=== PATIENT | male | born 1965 | race Caucasian/White ===

== ENCOUNTER 2019-05-27 17:48 | Inpatient (IN) | payer SELFPAY ==
[~2019-05-27] VITALS: Ht 170.2 cm; Wt 99.0 kg
[2019-05-27] MEDS ORDERED: AZITHROMYCIN 500 MG in DEXT 5% WATER 250 ML IV ONE (19:00)
[2019-05-27] MEDS ORDERED: CEFTRIAXONE 1 G PREMIX 50 ML IV ONE (19:00)
[2019-05-27] MEDS ORDERED: SODIUM CHLORIDE 0.9% 1000ML BAG (SEPSIS BOLUS) IV ONE (19:00)
[2019-05-27] MEDS ORDERED: ACETAMINOPHEN 500MG TABLET PO ONE (19:00)
[2019-05-27 19:50] LABS: INR 1.3; MEAN CORPUSCULAR HEMOGLOBIN 28.7 pg (28.0-32.0); MEAN CORPUSCULAR VOLUME 84.6 fL (80.0-94.0); MEAN PLATELET VOLUME 10.9 fl (7.4-10.4); PROTHROMBIN TIME 14.3 sec (9.6-11.0); RED BLOOD CELL COUNT 2.15 mill/uL (4.7-6.1)
[2019-05-27 19:58] LABS: PLATELET 13 x1000/uL (130-400)
[2019-05-27 19:59] LABS: HEMATOCRIT. 18.2 % (42.0-52.0); HEMOGLOBIN. 6.2 g/dL (14.0-18.0)
[2019-05-27 20:00] LABS: CHLORIDE 99 mEq/L (98-107)
[2019-05-27 22:22] LABS: CLARITY URINE CLOUDY (CLEAR); COLOR URINE DARK YELLOW (YELLOW); KETONES URINE TRACE (NEGATIVE); LEUKOCYTE ESTERASE URINE NEGATIVE (NEGATIVE); NITRITE URINE NEGATIVE (NEGATIVE); OCCULT BLOOD URINE NEGATIVE (NEGATIVE); PROTEIN URINE 1+ (NEGATIVE); SPECIFIC GRAVITY URINE 1.019 (1.005-1.030)
[2019-05-28 05:05] LABS: PLATELET ESTIMATE DECREASED
[2019-05-28] MEDS ORDERED: AZITHROMYCIN 500 MG in DEXT 5% WATER 250 ML IV SCH ×2 (06:00→21:00)
[2019-05-28] MEDS ORDERED: CEFTRIAXONE 1 G PREMIX 50 ML IV SCH ×2 (06:00→20:00)
[2019-05-28] MEDS ORDERED: DOCUSATE SODIUM 100MG CAPSULE PO PRN (22:15)
[2019-05-28] MEDS ORDERED: CLONIDINE 0.1MG TABLET PO PRN (22:15)
[2019-05-28] MEDS ORDERED: ONDANSETRON HCL 4MG/2ML INJ IV PRN (22:15)
[2019-05-28] MEDS ORDERED: MAGNESIUM/ALUMINUM HYDROXIDE/SIMETHICONE 30ML UDC PO PRN (22:15)
[2019-05-28] MEDS ORDERED: SODIUM CHLORIDE 0.9% 1,000 ML IV ONE (22:30)
[2019-05-28 22:52] LABS: MEAN CORPUSCULAR HEMOGLOBIN 29.3 pg (28.0-32.0); MEAN CORPUSCULAR VOLUME 85.6 fL (80.0-94.0); RED BLOOD CELL COUNT 2.35 mill/uL (4.7-6.1); RED CELL DISTRIBUTION WIDTH 20.6 % (11.6-14.6)
[2019-05-28 22:57] LABS: CHLORIDE 106 mEq/L (98-107)
[2019-05-28 23:04] LABS: ETHANOL BLOOD < 10 mg/dL; HEMATOCRIT 20.1 % (42.0-52.0); HEMOGLOBIN 6.9 g/dL (14.0-18.0); PLATELET 12 x1000/uL (130-400)
[2019-05-28 23:11] LABS: TOTAL IRON BINDING CAPACITY 160 ug/dL (250-450)
[2019-05-28 23:31] LABS: HEPATITIS B SURFACE ANTIGEN NEGATIVE
[2019-05-29 00:01] LABS: HEPATITIS A AB IGM NEGATIVE (NEGATIVE)
[2019-05-29] MEDS: IPRATROPIUM/ALBUTEROL 0.5-3(2.5)MG/3ML NEB NEB PRN (02:36)
[2019-05-29 02:57] LABS: VITAMIN B12 SERUM 1271 pg/mL (211-911)
[2019-05-29 05:29] LABS: MEAN CORPUSCULAR HEMOGLOBIN 29.3 pg (28.0-32.0); MEAN CORPUSCULAR VOLUME 87.6 fL (80.0-94.0); MEAN PLATELET VOLUME 8.5 fl (7.4-10.4); RED BLOOD CELL COUNT 2.32 mill/uL (4.7-6.1); RED CELL DISTRIBUTION WIDTH 19.5 % (11.6-14.6)
[2019-05-29 05:32] LABS: CHLORIDE 108 mEq/L (98-107)
[2019-05-29 05:38] LABS: HEMATOCRIT. 20.3 % (42.0-52.0); HEMOGLOBIN. 6.8 g/dL (14.0-18.0); PLATELET 19 x1000/uL (130-400)
[2019-05-29 05:39] LABS: LDL CHOLESTEROL 35 mg/dL (5-100)
[2019-05-29 05:40] LABS: HDL CHOLESTEROL 9 mg/dL (40-59)
[2019-05-29 05:42] LABS: CREATINE KINASE 150 IU/L (39-308)
[2019-05-29 05:43] LABS: CREATINE KINASE MB FRACTION < 1.0 ng/mL (0.5-3.6)
[2019-05-29 07:13] LABS: NUCLEATED RED BLOOD CELLS 1 /100 WBC
[2019-05-29 07:14] LABS: PLATELET ESTIMATE DECREASED
[2019-05-29 12:30] VITALS: BP 111/62
[2019-05-29 12:36] VITALS: BP 111/62
[2019-05-29] MEDS ORDERED: CEFTRIAXONE 1 G PREMIX 50 ML IV SCH (13:00)
[2019-05-29] MEDS: VANCOMYCIN 2,000 MG in DEXT 5% WATER 500 ML IV SCH ×2 (14:00→15:32)
[2019-05-29] MEDS ORDERED: AZITHROMYCIN 500 MG in DEXT 5% WATER 250 ML IV SCH (14:00)
[2019-05-29 16:02] LABS: CREATINE KINASE 155 IU/L (39-308)
[2019-05-29 16:03] LABS: CREATINE KINASE MB FRACTION 1.4 ng/mL (0.5-3.6)
[2019-05-29 20:00] VITALS: BP 115/65
[2019-05-29] MEDS ORDERED: HYDROCODONE/ACETAMINOPHEN 5/325MG TABLET PO ONE (20:00)
[2019-05-29] MEDS: AZITHROMYCIN 500 MG in DEXT 5% WATER 250 ML IV SCH (20:50)
[2019-05-30] VITALS: BP 118/64
[2019-05-30] MEDS: VANCOMYCIN 1,000 MG in DEXT 5% WATER 250 ML IV SCH ×4 (00:38→21:28)
[2019-05-30] MEDS ORDERED: DEXTROSE 50% WATER 50ML SYRINGE IV PRN (01:15)
[2019-05-30] MEDS: CEFTRIAXONE 1 G PREMIX 50 ML IV SCH ×2 (01:46→20:45)
[2019-05-30] MEDS: ACETAMINOPHEN 325MG TABLET PO PRN ×2 (03:34→21:28)
[2019-05-30 04:00] VITALS: BP 101/56
[2019-05-30] MEDS: BLOOD SUGAR DIAGNOSTIC STRIP TEST SCH ×4 (06:05→20:45)
[2019-05-30] MEDS: INSULIN LISPRO 100 UNITS/ML SUBCUT SCH ×4 (06:17→21:00)
[2019-05-30 08:00] VITALS: BP 95/60
[2019-05-30 08:08] LABS: HIV SCREEN 4G Non Reactive (Non Reactive)
[2019-05-30 08:59] LABS: CHLORIDE 109 mEq/L (98-107)
[2019-05-30 09:17] LABS: HEMATOCRIT 24.9 % (42.0-52.0); HEMOGLOBIN 8.6 g/dL (14.0-18.0); MEAN CORPUSCULAR VOLUME 87.2 fL (80.0-94.0); RED BLOOD CELL COUNT 2.85 mill/uL (4.7-6.1); RED CELL DISTRIBUTION WIDTH 19.3 % (11.6-14.6)
[2019-05-30 09:20] LABS: PLATELET 13 x1000/uL (130-400)
[2019-05-30 12:00] VITALS: BP 112/75
[2019-05-30] MEDS ORDERED: POTASSIUM CHLORIDE 20MEQ TABLET SR PO SCH (12:15)
[2019-05-30 15:17] VITALS: BP 108/67
[2019-05-30 20:00] VITALS: BP 107/69
[2019-05-30] MEDS: AZITHROMYCIN 500 MG in DEXT 5% WATER 250 ML IV SCH (20:45)
[2019-05-30] MEDS: PANTOPRAZOLE SODIUM 40 MG/VIAL IV SCH (20:45)
[2019-05-30] MEDS: IPRATROPIUM/ALBUTEROL 0.5-3(2.5)MG/3ML NEB HHN SCH (22:20)
[2019-05-31] VITALS (7 sets, daily range): BP systolic 96–124; BP diastolic 52–67
[2019-05-31] MEDS: IPRATROPIUM/ALBUTEROL 0.5-3(2.5)MG/3ML NEB HHN SCH ×4 (01:00→20:35)
[2019-05-31] MEDS: VANCOMYCIN 1,000 MG in DEXT 5% WATER 250 ML IV SCH ×2 (05:41→17:47)
[2019-05-31 05:49] LABS: HEMATOCRIT. 23.1 % (42.0-52.0); HEMOGLOBIN. 7.9 g/dL (14.0-18.0); MEAN CORPUSCULAR HEMOGLOBIN 29.8 pg (28.0-32.0); MEAN CORPUSCULAR VOLUME 87.7 fL (80.0-94.0); MEAN PLATELET VOLUME 10.2 fl (7.4-10.4); RED BLOOD CELL COUNT 2.64 mill/uL (4.7-6.1); RED CELL DISTRIBUTION WIDTH 19.4 % (11.6-14.6)
[2019-05-31] MEDS: BLOOD SUGAR DIAGNOSTIC STRIP TEST SCH ×4 (05:58→21:32)
[2019-05-31 05:59] LABS: INR 1.1; PARTIAL THROMBOPLASTIN TIME 34.8 sec (23.4-31.0); PROTHROMBIN TIME 11.9 sec (9.6-11.0)
[2019-05-31 06:01] LABS: CHLORIDE 109 mEq/L (98-107)
[2019-05-31 06:22] LABS: PLATELET 11 x1000/uL (130-400)
[2019-05-31] MEDS: INSULIN LISPRO 100 UNITS/ML SUBCUT SCH ×4 (06:28→21:00)
[2019-05-31] MEDS ORDERED: MIDAZOLAM HCL 5 MG/5 ML VIAL ONE (10:47)
[2019-05-31] MEDS ORDERED: FENTANYL CITRATE/PF 50MCG/ML 2ML VIAL ONE (10:48)
[2019-05-31] MEDS ORDERED: MIDAZOLAM HCL 5 MG/5 ML VIAL IV PRN (10:52)
[2019-05-31] MEDS ORDERED: FENTANYL CITRATE/PF 50MCG/ML 2ML VIAL IV PRN (10:53)
[2019-05-31] MEDS ORDERED: KCL 20MEQ/100ML PREMIX 100 ML IV SCH (11:00)
[2019-05-31] MEDS: PANTOPRAZOLE SODIUM 40 MG/VIAL IV SCH ×2 (12:21→21:31)
[2019-05-31 18:25] LABS: PLATELET ESTIMATE MARKEDLY DECREASED
[2019-05-31] MEDS: CEFTRIAXONE 1 G PREMIX 50 ML IV SCH (21:34)
[2019-05-31] MEDS: AZITHROMYCIN 500 MG in DEXT 5% WATER 250 ML IV SCH (23:14)
[2019-06-01] VITALS (10 sets, daily range): BP systolic 96–110; BP diastolic 50–72
[2019-06-01] MEDS: IPRATROPIUM/ALBUTEROL 0.5-3(2.5)MG/3ML NEB HHN SCH ×3 (01:55→14:45)
[2019-06-01] MEDS: VANCOMYCIN 1,000 MG in DEXT 5% WATER 250 ML IV SCH (05:56)
[2019-06-01 06:30] LABS: CHLORIDE 110 mEq/L (98-107)
[2019-06-01] MEDS: INSULIN LISPRO 100 UNITS/ML SUBCUT SCH ×4 (07:01→20:42)
[2019-06-01] MEDS: BLOOD SUGAR DIAGNOSTIC STRIP TEST SCH ×4 (07:01→20:42)
[2019-06-01 08:37] LABS: HEMATOCRIT. 21.8 % (42.0-52.0); HEMOGLOBIN. 7.5 g/dL (14.0-18.0); MEAN CORPUSCULAR HEMOGLOBIN 30.3 pg (28.0-32.0); MEAN CORPUSCULAR VOLUME 87.9 fL (80.0-94.0); MEAN PLATELET VOLUME 11.9 fl (7.4-10.4); RED BLOOD CELL COUNT 2.48 mill/uL (4.7-6.1); RED CELL DISTRIBUTION WIDTH 19.4 % (11.6-14.6)
[2019-06-01] MEDS: PANTOPRAZOLE SODIUM 40 MG/VIAL IV SCH ×2 (08:49→20:50)
[2019-06-01 09:07] LABS: PLATELET 9 x1000/uL (130-400)
[2019-06-01 10:05] LABS: PLATELET ESTIMATE MARKEDLY DECREASED
[2019-06-01] MEDS ORDERED: POTASSIUM CHLORIDE 20MEQ TABLET SR PO ONE (10:45)
[2019-06-01] MEDS: CEFEPIME 1,000 MG in DEXTROSE 5% WATER 50 ML IV SCH ×2 (13:07→23:02)
[2019-06-01] MEDS: ACETYLCYSTEINE 100MG/ML 10% VIAL 4ML INH SCH (21:41)
[2019-06-01] MEDS: IPRATROPIUM/ALBUTEROL 0.5-3(2.5)MG/3ML NEB NEB PRN (21:42)
[2019-06-01 23:14] LABS: HEMATOCRIT 21.6 % (42.0-52.0); HEMOGLOBIN 7.4 g/dL (14.0-18.0)
[2019-06-02] VITALS (10 sets, daily range): BP systolic 91–107; BP diastolic 45–73
[2019-06-02] MEDS: BLOOD SUGAR DIAGNOSTIC STRIP TEST SCH ×4 (06:25→20:34)
[2019-06-02] MEDS: INSULIN LISPRO 100 UNITS/ML SUBCUT SCH ×4 (06:25→20:34)
[2019-06-02 06:54] LABS: HEMATOCRIT. 22.4 % (42.0-52.0); HEMOGLOBIN. 7.7 g/dL (14.0-18.0); MEAN CORPUSCULAR HEMOGLOBIN 29.8 pg (28.0-32.0); MEAN CORPUSCULAR VOLUME 87.1 fL (80.0-94.0); MEAN PLATELET VOLUME 8.7 fl (7.4-10.4); RED BLOOD CELL COUNT 2.58 mill/uL (4.7-6.1); RED CELL DISTRIBUTION WIDTH 19.5 % (11.6-14.6)
[2019-06-02 07:06] LABS: PLATELET 23 x1000/uL (130-400)
[2019-06-02 07:10] LABS: CHLORIDE 109 mEq/L (98-107)
[2019-06-02 07:26] LABS: FOLIC ACID (FOLATE) SERUM 7.8 ng/mL (>5.38)
[2019-06-02] MEDS: CEFEPIME 1,000 MG in DEXTROSE 5% WATER 50 ML IV SCH ×2 (08:31→20:34)
[2019-06-02] MEDS: PANTOPRAZOLE SODIUM 40 MG/VIAL IV SCH ×2 (08:31→20:34)
[2019-06-02] MEDS: ACETYLCYSTEINE 100MG/ML 10% VIAL 4ML INH SCH ×3 (09:06→20:34)
[2019-06-02] MEDS: IPRATROPIUM/ALBUTEROL 0.5-3(2.5)MG/3ML NEB HHN SCH ×4 (09:09→20:34)
[2019-06-02 10:31] LABS: PLATELET ESTIMATE MARKEDLY DECREASED
[2019-06-03] VITALS: BP 108/65
[2019-06-03] MEDS: IPRATROPIUM/ALBUTEROL 0.5-3(2.5)MG/3ML NEB HHN SCH ×4 (00:46→13:30)
[2019-06-03 04:00] VITALS: BP 101/47
[2019-06-03] MEDS: INSULIN LISPRO 100 UNITS/ML SUBCUT SCH ×2 (05:43→12:06)
[2019-06-03] MEDS: BLOOD SUGAR DIAGNOSTIC STRIP TEST SCH ×2 (05:43→12:05)
[2019-06-03 07:44] LABS: CHLORIDE 109 mEq/L (98-107)
[2019-06-03 07:51] LABS: HEMATOCRIT. 21.6 % (42.0-52.0); HEMOGLOBIN. 7.4 g/dL (14.0-18.0); MEAN CORPUSCULAR VOLUME 87.9 fL (80.0-94.0); MEAN PLATELET VOLUME 8.5 fl (7.4-10.4); RED BLOOD CELL COUNT 2.45 mill/uL (4.7-6.1); RED CELL DISTRIBUTION WIDTH 19.1 % (11.6-14.6)
[2019-06-03 08:00] VITALS: BP_SYST 101; BP_SYST 116; BP_DIAS 55; BP_DIAS 66
[2019-06-03 08:21] LABS: PLATELET 39 x1000/uL (130-400)
[2019-06-03] MEDS: PANTOPRAZOLE SODIUM 40 MG/VIAL IV SCH (09:04)
[2019-06-03] MEDS: CEFEPIME 1,000 MG in DEXTROSE 5% WATER 50 ML IV SCH (09:04)
[2019-06-03] MEDS: ACETYLCYSTEINE 100MG/ML 10% VIAL 4ML INH SCH (09:21)
[2019-06-03 12:00] VITALS: BP 121/72
[2019-06-03 13:30] VITALS: BP 121/72
[2019-06-04 08:43] LABS: PLATELET ESTIMATE MARKEDLY DECREASED
[2019-06-04 09:06] LABS: IMMUNOGLOBULIN A 549 mg/dL (90-386); IMMUNOGLOBULIN G 2684 mg/dL (603-1613); IMMUNOGLOBULIN M 164 mg/dL (20-172)
== END 2019-06-03 14:10 | disposition home or self-care (01) | DRG 720 ==
LOC: ER 17:48 → EDBEDREQ 05-28 00:17 → EDBEDREQTM 05-28 00:17 → EDBEDREQDT 05-28 00:17 → ENRESERV 05-28 20:17 → CANRESERV 05-28 20:17 → 7EST 05-29 00:07 → CANRESERV 05-29 07:56 → ENRESERV 05-29 07:56 → EDBEDREQTM 05-29 09:15 → EDBEDREQSVC 05-29 09:15 → EDBEDREQDT 05-29 09:15 → ENRESERV 05-29 10:21 → 5WST 05-29 22:40
PROVIDERS: ADMIT Internal Medicine; ATTEND Internal Medicine
PROC: 30233N1 Transfusion of Nonautologous Red Blood Cells into Peripheral Vein, Percutaneous Approach (ICD-10-PCS; principal; 2019-05-27)
PROC: 30233R1 Transfusion of Nonautologous Platelets into Peripheral Vein, Percutaneous Approach (ICD-10-PCS; 2019-05-29)
PROC: 0DJ08ZZ Inspection of Upper Intestinal Tract, Via Natural or Artificial Opening Endoscopic (ICD-10-PCS; 2019-05-31)
DX: A40.8 Other streptococcal sepsis (principal); J96.00 Acute respiratory failure, unspecified whether with hypoxia or hypercapnia; R65.21 Severe sepsis with septic shock; D61.9 Aplastic anemia, unspecified; D89.89 Other specified disorders involving the immune mechanism, not elsewhere classified; D68.9 Coagulation defect, unspecified; J15.4 Pneumonia due to other streptococci; B97.4 Respiratory syncytial virus as the cause of diseases classified elsewhere; D69.59 Other secondary thrombocytopenia; E46 Unspecified protein-calorie malnutrition; K74.60 Unspecified cirrhosis of liver; E11.65 Type 2 diabetes mellitus with hyperglycemia; E87.1 Hypo-osmolality and hyponatremia; J06.9 Acute upper respiratory infection, unspecified; R55 Syncope and collapse; I80.8 Phlebitis and thrombophlebitis of other sites; R76.8 Other specified abnormal immunological findings in serum; E87.6 Hypokalemia; L03.113 Cellulitis of right upper limb; Z68.34 Body mass index [BMI] 34.0-34.9, adult
CPT/HCPCS: 36415; 71045; 71250; 76700; 80048; 80053; 80061; 80202; 81003; 82270; 82550; 82553; 82728; 82746; 82784; 82962; 83036; 83605; 83880; 84145; 84443; 84484; 85014; 85018; 85025; 85027; 85044; 85049; 86038; 86334; 86850; 86880; 86900; 86920; 87077; 87186; 87389; 87420; 87635; 87804; 93005; 96365; 96366; C9113; J0456; J0692; J0696; J2250; J3010; J3370; J3480; J7060; J7608; P9016; P9021; P9034; U0002